=== PATIENT | female | born 1980 | race Caucasian/White ===

== ENCOUNTER → 2017-02-22 | Outpatient (CLI) | payer BC ==
[2017-02-22 12:46] LABS: HEMOGLOBIN 10.4 gm/dl (12.3-15.3); RED BLOOD COUNT 4.16 M/UL (4.00-5.10); WHITE BLOOD COUNT 6.5 K/UL (4.5-11.0)
== END ==
LOC: LAB 12:24
PROVIDERS: Nurse Practitioner Family
DX: N92.0 Excessive and frequent menstruation with regular cycle (principal)
CPT/HCPCS: 36415; 82728; 85025

== ENCOUNTER → 2020-11-02 | Outpatient (CLI) | payer BC ==
[~2020-11-02] MED LIST: BUSPAR 10MG10 MG PO; COLACE 100MG C100 MG PO; HYDROCODON-ACE1 EAC6 PO; IBUPROFEN600 MG PO; LABETALOL HCL100 MG PO; PRENATAL TABLE1 EAC1 PO; PROCARDIA XL30 MG PO; ZOLOFT100 MG PO
== END ==
LOC: HEART 5 10-25 09:30
DX: R00.2 Palpitations (principal); I08.1 Rheumatic disorders of both mitral and tricuspid valves
CPT/HCPCS: 93306

== ENCOUNTER 2021-02-14 12:37 | Inpatient (IN) | payer BC, OTHER ==
[~2021-02-14] VITALS: Ht 170.2 cm; Wt 96.2 kg
[2021-02-14 13:16] LABS: RED BLOOD COUNT 4.45 M/UL (4.00-5.10); WHITE BLOOD COUNT 8.6 K/UL (4.5-11.0)
[2021-02-14 13:46] LABS: BUN/CREATININE RATIO 13 (0-10)
[2021-02-14] MEDS ORDERED: PROCARDIA XL30 MG PO (15:36)
[2021-02-14] MEDS ORDERED: ZOLOFT100 MG PO (15:37)
[2021-02-14] MEDS ORDERED: BUSPAR 10MG10 MG PO (15:37)
[2021-02-14] MEDS ORDERED: LABETALOL HCL100 MG PO (15:37)
[2021-02-14] MEDS ORDERED: PRENATAL TABLE1 EAC1 PO (15:38)
[2021-02-15] MEDS ORDERED: HYDROCODON-ACE1 EAC6 PO (07:59)
[2021-02-15] MEDS ORDERED: IBUPROFEN600 MG PO (07:59)
[2021-02-15] MEDS ORDERED: COLACE 100MG C100 MG PO (07:59)
[2021-02-16 02:35] LABS: HEMOGLOBIN 8.5 gm/dl (12.3-15.3)
== END 2021-02-17 14:31 | disposition home or self-care (01) | DRG 788 ==
LOC: GENOP 12:37 → OB 15:18
PROVIDERS: Obstetrics & Gynecology; ADMIT Obstetrics & Gynecology
PROC: 3E0234Z Introduction of Serum, Toxoid and Vaccine into Muscle, Percutaneous Approach (ICD-10-PCS; 2021-02-15)
PROC: 10D00Z1 Extraction of Products of Conception, Low, Open Approach (ICD-10-PCS; principal; 2021-02-15 08:02)
DX: O13.4 Gestational [pregnancy-induced] hypertension without significant proteinuria, complicating childbirth (principal); Z37.0 Single live birth; O34.211 Maternal care for low transverse scar from previous cesarean delivery; N85.8 Other specified noninflammatory disorders of uterus; O99.844 Bariatric surgery status complicating childbirth; Z3A.37 37 weeks gestation of pregnancy; O99.344 Other mental disorders complicating childbirth; F41.9 Anxiety disorder, unspecified; Z23 Encounter for immunization; Z20.822 Contact with and (suspected) exposure to COVID-19
CPT/HCPCS: 36415; 80053; 81001; 82570; 82800; 83615; 84156; 84550; 85014; 85018; 85025; 90471; 90715; C9113; J0690; J1885; J2250; J2274; J2405; J2590; J3010; J7120; Q0177; U0002